=== PATIENT | female | born 1940 | race Caucasian/White ===

== ENCOUNTER 2020-01-31 23:15 | Emergency (ER) | payer OTHER, BC ==
[~2020-01-31] VITALS: Ht 154.9 cm; Wt 59.4 kg
[~2020-01-31 23:15] MED LIST: BYSTOLIC 5 MG5 MG PO; COLESTID1 GM PO; IMDUR 30 MG TAB30 MG PO; KLOR-CON 1010 MEQ PO; LIPITOR80 MG PO; NITROQUICK0.4 MG SL
[2020-02-01 00:49] VITALS: BP 151/59
== END 2020-02-01 00:51 | disposition home or self-care (01) ==
LOC: M.ERS 23:15
DX: S81.811A Laceration without foreign body, right lower leg, initial encounter (principal); Z95.5 Presence of coronary angioplasty implant and graft; Z90.710 Acquired absence of both cervix and uterus; Z90.49 Acquired absence of other specified parts of digestive tract; W26.8XXA Contact with other sharp object(s), not elsewhere classified, initial encounter; Y93.89 Activity, other specified; Y92.89 Other specified places as the place of occurrence of the external cause; Y99.0 Civilian activity done for income or pay